=== PATIENT | female | born 1995 | race Caucasian/White ===

== ENCOUNTER 2021-02-22 02:24 | Emergency (ER) | payer OTHER ==
[~2021-02-22] VITALS: Ht 167.7 cm; Wt 79.8 kg
[2021-02-22 02:35] VITALS: BP 138/78
[2021-02-22 02:47] LABS: BILIRUBIN,URINE NEGATIVE (NEGATIVE); CLARITY,URINE CLEAR; COLOR,URINE YELLOW; GLUCOSE, URINE (UA) NEGATIVE (NEGATIVE); KETONES,URINE NEGATIVE (NEGATIVE); LEUKOCYTE ESTERASE ,URINE NEGATIVE (NEGATIVE); NITRITE,URINE NEGATIVE (NEGATIVE); PROTEIN,URINE NEGATIVE (NEGATIVE)
[2021-02-22 02:59] LABS: BACTERIA,URINE TRACE /HPF; WBC,URINE 0-2 /HPF
[2021-02-22 03:03] LABS: BASOPHILS # (AUTO) 0.1 10^3/uL (0.0-0.1); BASOPHILS % (AUTO) 1 % (0-10); EOSINOPHILS # (AUTO) 0.3 10^3/uL (0.0-0.3); EOSINOPHILS % (AUTO) 2 % (0-10); HEMATOCRIT 40 % (35-52); HEMOGLOBIN 12.8 g/dL (11.5-16.0); LYMPHOCYTES # (AUTO) 3.3 10^3/uL (1.0-4.0); LYMPHOCYTES % (AUTO) 26 % (12-44); MEAN CORPUSCULAR HEMOGLOBIN 27 pg (25-34); MEAN CORPUSCULAR HGB CONC 32 g/dL (32-36); MEAN CORPUSCULAR VOLUME 84 fL (80-99); MEAN PLATELET VOLUME 10.7 fL (9.0-12.2); MONOCYTES # (AUTO) 1.2 10^3/uL (0.0-1.0); MONOCYTES % (AUTO) 10 % (0-12); NEUTROPHILS # (AUTO) 7.8 10^3/uL (1.8-7.8); NEUTROPHILS % (AUTO) 61 % (42-75); PLATELET COUNT 374 10^3/uL (130-400); WHITE BLOOD COUNT 12.7 10^3/uL (4.3-11.0)
[2021-02-22] MEDS ORDERED: KETOROLAC 30 MG/ML VIAL IVP STA (03:06)
[2021-02-22 03:10] LABS: ALBUMIN 4.3 GM/DL (3.2-4.5); POTASSIUM 3.5 MMOL/L (3.6-5.0)
[2021-02-22 03:11] LABS: CALCIUM 9.4 MG/DL (8.5-10.1)
[2021-02-22 03:13] LABS: TOTAL PROTEIN 7.8 GM/DL (6.4-8.2)
[2021-02-22 03:14] LABS: BILIRUBIN,TOTAL 0.3 MG/DL (0.1-1.0)
[2021-02-22] MEDS ORDERED: LACTATED RINGERS 1,000 ML IV ONE (03:15)
[2021-02-22] MEDS ORDERED: ONDANSETRON 4 MG/2 ML (SDV) Z0FRAN IVP ONE (03:15)
[2021-02-22 03:16] LABS: CREATININE SERUM 0.7 MG/DL (0.60-1.30)
--- NOTE | 2021-02-22 03:49 | ED Abdominal Pain ---
General Chief Complaint: Abdominal/GI Problems Stated Complaint: SIDE PAIN Nursing Triage Note: Pt arrives via POV from home with c/o left side pain; onset 1.5hrs CONSULTING SENIOR PRACTICE DIRECTOR. Pt reports recent dx of gallstones. Pt denies N/V/D. States she took one [place] tab that she had from [place] teeth removal in July that did not help. Source of Information: Patient History of Present Illness Date Seen by Provider: Feb 22, 2021 Time Seen by Provider: 02:40 Initial Comments PT ARRIVES VIA POV FROM HOME C/O RIGHT UPPER QUADRANT PAIN RADIATING TO RIGHT FLANK--BEGAN ABOUT 1 1/2 HOURS AGO NOTHING WORSENS OR IMPROVES PAIN TOOK HYDROCODONE X 1 AN HOUR AGO--NO RELIEF ( LEFT OVER MEDICATION FROM WISDOM TEETH REMOVAL IN JULY OF THIS YEAR) C/O NAUSEA, NO VOMITING NORMAL BM TODAY NO FEVER NO URINARY SYMPTOMS NO HISTORY OF SIMILAR PT WAS FOUND TO HAVE A GALLSTONE ON ULTRASOUND DONE A COUPLE OF WEEKS AGO AT TRANSFER PT STATES ULTRASOUND WAS DONE FOR ELEVATED LIVER ENZYMES NOTED ON ROUTINE LAB. STATES SHE WAS TOLD SHE HAD A FATTY LIVER. PT HAS NOT HAD PAIN IN ABDOMEN OR NAUSEA/VOMITING OR ANY GI SYMPTOMS BEFORE NOW LAST ATE AROUND 1900 TONIGHT--2 PANCAKES AND 2 EGGS LMP--NOW PCP: DR. NUGENT/FOOD AND BEVERAGE ASSOCIATE SHEILA NUGENT Allergies and Home Medications Allergies Coded Allergies: No Known Drug Allergies (Unverified , 02/22/21) Patient Home Medication List Home Medication List Reviewed: Yes Ondansetron (Ondansetron Odt) 4 Mg Tab.rapdis, 4 MG PO Q4H Prescribed by: CHRISTIANO REDDY on 02/22/21426 Pantoprazole Sodium (Protonix) 40 Mg Tablet.dr, 40 MG PO DAILY Prescribed by: CHRISTIANO REDDY on 02/22/21426 Tramadol HCl (Ultram) 50 Mg Tablet, 50 MG PO Q4H Prescribed by: CHRISTIANO REDDY on 02/22/21426 Review of Systems Review of Systems Constitutional: no symptoms reported Respiratory: No Symptoms Reported Cardiovascular: No Symptoms Reported Gastrointestinal: See HPI, Abdominal Pain; Denies Constipated, Denies Diarrhea; Nausea; Denies Poor Appetite, Denies Poor Fluid Intake, Denies Vomiting Genitourinary: No Symptoms Reported Musculoskeletal: see HPI, back pain Skin: no symptoms reported Psychiatric/Neurological: No Symptoms Reported Endocrine: No Symptoms Reported Hematologic/Lymphatic: No Symptoms Reported Past Njtwygp-Vqjzyz-Dxptyh Hx Patient Social History Tobacco Use?: No Use of E-Cig and/or Vaping dev: No Substance use?: No Alcohol Use?: No Pt feels they are or have been: No Immunizations Up To Date Influenza Vaccine Up-to-Date: No; Not Current Past Medical History Surgeries: Yes (WISDOM TEETH) Respiratory: No Cardiac: No Neurological: No Reproductive Disorders: Yes Female Reproductive Disorders: Polycystic Ovarian Dis Genitourinary: No Gastrointestinal: Yes Gastroesophageal Reflux Musculoskeletal: No Endocrine: No HEENT: No (WISDOM TEETH REMOVED) Cancer: No Psychosocial: No Integumentary: No Blood Disorders: No Physical Exam Vital Signs Vital Signs - First Documented 02/22/21 02:35 Temp 36.8 Pulse 101 Resp 18 B/P (MAP) 138/78 (98) Pulse Ox 100 O2 Delivery Room Air Capillary Refill : Less Than 3 Seconds Height/Weight/BMI Height: '" Weight: lbs. oz. kg; 28.00 BMI Method: General Appearance: WD/WN, no apparent distress, other (SMILING, VERY PLEASANT. SITTING UPRIGHT -STYLE. WALKS UPRIGHT AND MOVES QUICKLY WITHOUT DIFFICULTY. DOES NOT APPEAR TO BE IN ANY DISCOMFORT OR DISTRESS.) HEENT: PERRL/EOMI; No scleral icterus (R), No scleral icterus (L) Neck: normal inspection Respiratory: normal breath sounds, no respiratory distress, no accessory muscle use Cardiovascular: regular rate, rhythm, no murmur Gastrointestinal: normal bowel sounds, soft, no organomegaly, no pulsatile mass; No distended, No guarding, No rebound; tenderness (RUQ AND RIGHT FLANK/CVA TENDERNESS--MILD); No hernia, No mass Extremities: normal inspection Back: no vertebral tenderness, CVA tenderness (R); No decreased range of motion Neurologic/Psychiatric: outdoor adventure leader II-XII nml as tested, no motor/sensory deficits, alert, normal mood/affect, oriented x 3 Skin: normal color, warm/dry; No rash; tattoos/piercings (EXTENSIVE TATTOOS) Progress/Results/Core Measures Results/Orders Lab Results Laboratory Tests Test 02/22/21 02:35 02/22/21 02:50 Range/Units Urine Color YELLOW Urine Clarity CLEAR Urine pH 6.0 5-9 Urine Specific [place] >=1.030 1.016-1.022 Urine Protein NEGATIVE NEGATIVE Urine Glucose (UA) NEGATIVE NEGATIVE Urine Ketones NEGATIVE NEGATIVE Urine Nitrite NEGATIVE NEGATIVE Urine Bilirubin NEGATIVE NEGATIVE Urine Urobilinogen 0.2 < = 1.0 MG/DL Urine Leukocyte Esterase NEGATIVE NEGATIVE Urine RBC (Auto) 1+ H NEGATIVE Urine RBC 2-5 H /HPF Urine WBC 0-2 /HPF Urine Squamous Epithelial Cells 2-5 /HPF Urine Crystals NONE /LPF Urine Bacteria TRACE /HPF Urine Casts NONE /LPF Urine Mucus SMALL H /LPF Urine Culture Indicated NO White Blood Count 12.7 H 4.3-11.0 10^3/uL Red Blood Count 4.71 3.80-5.11 10^6/uL Hemoglobin 12.8 11.5-16.0 g/dL Hematocrit 40 35-52 % Mean Corpuscular Volume 84 80-99 fL Mean Corpuscular Hemoglobin 27 25-34 pg Mean Corpuscular Hemoglobin Concent 32 32-36 g/dL Red Cell Distribution Width 13.9 10.0-14.5 % Platelet Count 374 130-400 10^3/uL Mean Platelet Volume 10.7 9.0-12.2 fL Immature Granulocyte % (Auto) 0 % Neutrophils (%) (Auto) 61 42-75 % Lymphocytes (%) (Auto) 26 12-44 % Monocytes (%) (Auto) 10 0-12 % Eosinophils (%) (Auto) 2 0-10 % Basophils (%) (Auto) 1 0-10 % Neutrophils # (Auto) 7.8 1.8-7.8 10^3/uL Lymphocytes # (Auto) 3.3 1.0-4.0 10^3/uL Monocytes # (Auto) 1.2 H 0.0-1.0 10^3/uL Eosinophils # (Auto) 0.3 0.0-0.3 10^3/uL Basophils # (Auto) 0.1 0.0-0.1 10^3/uL Immature Granulocyte # (Auto) 0.1 0.0-0.1 10^3/uL Sodium Level 141 135-145 MMOL/L Potassium Level 3.5 L 3.6-5.0 MMOL/L Chloride Level 105 98-107 MMOL/L Carbon Dioxide Level 23 21-32 MMOL/L Anion Gap 13 5-14 MMOL/L Blood Urea Nitrogen 9 7-18 MG/DL Creatinine 0.70 0.60-1.30 MG/DL Estimat Glomerular Filtration Rate 103 BUN/Creatinine Ratio 13 Glucose Level 77 70-105 MG/DL Calcium Level 9.4 8.5-10.1 MG/DL Corrected Calcium 9.2 8.5-10.1 MG/DL Total Bilirubin 0.3 0.1-1.0 MG/DL Aspartate Amino Transf (AST/SGOT) 18 5-34 U/L Alanine Aminotransferase (ALT/SGPT) 28 0-55 U/L Alkaline Phosphatase 68 40-136 U/L Total Protein 7.8 6.4-8.2 GM/DL Albumin 4.3 3.2-4.5 GM/DL Amylase Level 39 25-125 U/L Lipase 50 8-78 U/L My Orders Orders - CHRISTIANO REDDY DO Ed Iv/Invasive Line Start (02/22/21 02:41) Urine Bedside (02/22/21 02:41) Amylase (02/22/21 02:41) Cbc With Automated Diff (02/22/21 02:41) Comprehensive Metabolic Panel (02/22/21 02:41) Lipase (02/22/21 02:41) Ua Culture If Indicated (02/22/21 02:41) Ed Iv/Invasive Line Start (02/22/21 02:41) Ketorolac Injection (Toradol Injection) (02/22/21 03:06) Ed Iv/Invasive Line Start (02/22/21 03:06) Lactated Ringers (Lr 1000 Ml Iv Solution (02/22/21 03:15) Ondansetron Injection (Zofran Injectio (02/22/21 03:15) Ct Abd/Pelvis Wo(Kidney Stone) (02/22/21 03:08) Abdomen/Kub 1view (02/22/21 03:08) Medications Given in ED Current Medications Medications Dose Ordered Sig/Yolanda Route Start Time Stop Time Status Last Admin Dose Admin Lactated Ringer's 1,000 ml @ 0 mls/hr Q0M ONCE IV 02/22/21 03:15 02/22/21 03:16 DC 02/22/21 03:13 1,000 MLS/HR Ondansetron HCl 4 mg ONCE ONCE IVP 02/22/21 03:15 02/22/21 03:16 DC 02/22/21 03:13 4 MG Vital Signs/I&O 02/22/21 02:35 Temp 36.8 Pulse 101 Resp 18 B/P (MAP) 138/78 (98) Pulse Ox 100 O2 Delivery Room Air Blood Pressure Mean: 98 Progress Progress Note : Progress Note GIVEN IV FLUIDS, TORADOL AND ZOFRAN WITH COMPLETE RESOLUTION OF SYMPTOMS Diagnostic Imaging Comments ABDOMEN XRAYS--PER RADIOLOGIST REPORT AT 0413 FINDINGS: Nonspecific bowel gas pattern. No suspicious radiopaque densities. No acute osseous findings. IMPRESSION: No acute findings in the abdomen. CT ABDOMEN/PELVIS--PER RADIOLOGIST REPORT AT 0419 FINDINGS: Cholelithiasis. The liver, pancreas, spleen, adrenals, kidneys, collecting systems, bladder and appendix are negative. Reproductive structures grossly unremarkable. No free intraperitoneal air/fluid, lymphadenopathy or evidence of bowel obstruction. No acute osseous findings. IMPRESSION: Cholelithiasis without secondary findings of cholecystitis. This could be further investigated with ultrasound. Agree with preliminary interpretation Reviewed: Reviewed by Me Departure Impression Primary Impression: Cholelithiasis Additional Impression: Biliary colic Disposition: HOME, SELF-CARE Condition: Improved Departure-Patient Inst. Decision time for Depature: 04:19 Referrals: RAMOS LO DO CYNTHIA NUGENT DO Patient Instructions: Gallstones Add. Discharge Instructions: CLEAR LIQUIDS--WATER, BROTH, JELLO, GATORADE NO FOOD UNTIL YOUR PAIN AND NAUSEA ARE GONE THEN ADD BRATS DIET TO CLEAR LIQUIDS--BANANAS, RICE, APPLESAUCE, TOAST, SALTINES FOLLOW UP WITH DR. LO NEXT WEEK FOR FURTHER CARE--CALL Tuesday TO SCHEDULE APPOINTMENT RETURN TO ER IF SYMPTOMS WORSEN All discharge instructions reviewed with patient and/or family. Voiced u nderstanding. Scripts Pantoprazole Sodium (Protonix) 40 Mg Tablet. 40 MG PO DAILY, #15 TAB Prov: CHRISTIANO REDDY DO 02/22/21 Ondansetron (Ondansetron Odt) 4 Mg Tab.rapdis 4 MG PO Q4H for Nausea/Vomiting, #10 TAB Prov: CHRISTIANO REDDY DO 02/22/21 Tramadol HCl (Ultram) 50 Mg Tablet 50 MG PO Q4H for Pain, #20 TAB Prov: CHRISTIANO REDDY DO 02/22/21 CHRISTIANO REDDY DO Feb 22, 2021 03:49
--- NOTE | 2021-02-22 04:11 | Diagnostic Imaging Report ---
EXAM: ABDOMEN/KUB 1VIEW INDICATION: Left flank pain. Abdominal pain. COMPARISON: None FINDINGS: Nonspecific bowel gas pattern. No suspicious radiopaque densities. No acute osseous findings. IMPRESSION: No acute findings in the abdomen. Dictated by: Dictated on workstation # [id number]
--- NOTE | 2021-02-22 04:13 | Diagnostic Imaging Report ---
PROCEDURE: CT urinary tract, rule out kidney stone. TECHNIQUE: Multiple contiguous axial images were obtained through the abdomen and pelvis without the use of intravenous contrast. Auto Exposure Controls were utilized during the CT exam to meet ALARA standards for radiation dose reduction. INDICATION: Flank pain. COMPARISON: Abdominal radiograph from earlier today. FINDINGS: Cholelithiasis. The liver, pancreas, spleen, adrenals, kidneys, collecting systems, bladder and appendix are negative. Reproductive structures grossly unremarkable. No free intraperitoneal air/fluid, lymphadenopathy or evidence of bowel obstruction. No acute osseous findings. IMPRESSION: Cholelithiasis without secondary findings of cholecystitis. This could be further investigated with ultrasound. Agree with preliminary interpretation Dictated by: Dictated on workstation # [id number]
[2021-02-22] MEDS ORDERED: TRAM-42 PO (04:27)
[2021-02-22] MEDS ORDERED: ONDA4TAB11 PO (04:27)
[2021-02-22] MEDS ORDERED: PANT40TA2 PO (04:27)
[2021-02-26] MEDS ORDERED: HYDR-3817 PO (11:40)
== END 2021-02-22 04:40 | disposition home or self-care (01) ==
LOC: ER 02:28
DX: K80.20 Calculus of gallbladder without cholecystitis without obstruction (principal); K80.50 Calculus of bile duct without cholangitis or cholecystitis without obstruction; K21.9 Gastro-esophageal reflux disease without esophagitis
CPT/HCPCS: 36415; 74018; 74176; 80053; 81000; 82150; 83690; 84703; 85025

== ENCOUNTER 2021-02-25 05:37 | Outpatient (CLI) | payer OTHER ==
[~2021-02-25] VITALS: Ht 167.7 cm; Wt 79.0 kg
[~2021-02-25 05:37] MED LIST: ONDA4TAB11 PO; PANT40TA2 PO; TRAM-42 PO
[2021-02-25] MEDS ORDERED: BIRTH CONTROL (09:27)
[2021-02-25] MEDS ORDERED: SPIR25TA PO (09:27)
[2021-02-26] MEDS ORDERED: HYDR-3817 PO (11:40)
== END 2021-02-25 09:38 | disposition home or self-care (01) ==
LOC: PREOP 05:37
PROVIDERS: ATTEND Surgery
DX: Z01.818 Encounter for other preprocedural examination (principal)

== ENCOUNTER 2021-02-26 11:27 | Day surgery (SDC) | payer OTHER ==
[2021-02-26] VITALS (11 sets, daily range): BP systolic 108–131; BP diastolic 61–83
[~2021-02-26] VITALS: Ht 167 cm; Wt 79.0 kg
[~2021-02-26 11:27] MED LIST changes: +BIRTH CONTROL; +SPIR25TA PO
--- NOTE | 2021-02-26 11:38 | Progress Note-Pre Operative ---
Pre-Operative Progress Note H&P Reviewed The H&P was reviewed, patient examined and no changes noted. Date Seen by Provider: Feb 26, 2021 Time Seen by Provider: 11:30 Date H&P Reviewed: Feb 26, 2021 Time H&P Reviewed: :30 Pre-Operative Diagnosis: sx chronic calculous cholecystectomy DWIGHT BLANCHARD MD Feb 26, 2021 11:38
[2021-02-26] MEDS ORDERED: HYDR-3817 PO (11:40)
--- NOTE | 2021-02-26 11:41 | Discharge Inst-Surgical ---
D/C Lap Instructions-SANTO New, Converted, or Re-Newed RX: RX on Chart Follow Up Appt in 2 weeks Activity as tolerated No driving for 24 hours No [address] while on pain medications Incentive Spirometry use every 2 hours while awake Regular Diet Symptoms to Report: Fever over 101 degree F, Nausea/Vomiting Infection Signs and Symptoms to report: Increased redness, Foul odor of wound, Increased drainage Bathing instructions: May shower Operative Area Clean/Dry; Keep incision clean/dry If any problems/questions: Contact your physician or go to Emergency Room DWIGHT BLANCHARD MD Feb 26, 2021 11:41
[2021-02-26] MEDS ORDERED: oxyCODONE/APAP 5/325MG (PERCOCET 5) TABLET PO PRN (11:45)
[2021-02-26] MEDS ORDERED: ONDANSETRON 4 MG/2 ML (SDV) Z0FRAN IVP PRN ×2 (11:45→14:15)
[2021-02-26] MEDS ORDERED: ACETAMINOPHEN 325 MG TABLET PO PRN (11:45)
[2021-02-26] MEDS ORDERED: morphine INJ 10 MG/ML 1ML (SYR OR VIAL) IVP PRN ×2 (11:45)
[2021-02-26] MEDS: LACTATED RINGERS 1,000 ML IV PRN ×2 (12:08→14:01)
[2021-02-26] MEDS ORDERED: ceFAZolin 2 GM IV Premixed 50 ML IV ONE (12:15)
[2021-02-26] MEDS ORDERED: LIDOCAINE/EPI 1%-1:200,000 (XYLOCAINE) 30 ML VIAL ONE (12:20)
[2021-02-26] MEDS ORDERED: ROCURONIUM 10 MG/ML 5 ML SYRINGE IV ONE (12:48)
[2021-02-26] MEDS ORDERED: SEVOFLURANE (ULTANE) 15 ML INHAL SOLN ONE ×2 (12:48→13:36)
[2021-02-26] MEDS ORDERED: ONDANSETRON 4 MG/2 ML (SDV) Z0FRAN ONE (12:48)
[2021-02-26] MEDS ORDERED: proPOfol 200 MG/20 ML (DIPRIVAN) VIAL IV ONE (12:48)
[2021-02-26] MEDS ORDERED: fentaNYL INJ 100 MCG/2 ML AMP ONE (12:48)
[2021-02-26] MEDS ORDERED: LIDOCAINE PF 2% 5 ML (XYLOCAINE) VIAL ONE (12:48)
[2021-02-26] MEDS ORDERED: MIDAZOLAM 2 MG/2 ML (VERSED) VIAL ONE (12:48)
[2021-02-26] MEDS ORDERED: morphine INJ 10 MG/ML 1ML (SYR OR VIAL) ONE (13:38)
[2021-02-26] MEDS ORDERED: GLYCOPYRROLATE 0.2 MG/ML (ROBINUL) 2 ML VIAL ONE (13:52)
[2021-02-26] MEDS ORDERED: NEOSTIGMINE 3 MG/3 ML VIAL ONE (13:52)
--- NOTE | 2021-02-26 14:03 | Anesthesia-General Post-Op ---
General Patient Condition Mental Status/LOC: Same as Preop Cardiovascular: Satisfactory Nausea/Vomiting: Absent Respiratory: Satisfactory Pain: Controlled Complications: Absent Post Op Complications Complications None Follow Up Care/Instructions Patient Instructions None needed. Anesthesia/Patient Condition Patient Condition Patient is doing well, no complaints, stable vital signs, no apparent adverse anesthesia problems. No complications reported per nursing. JARED SCHULTZ CRNA Feb 26, 2021 14:03
[2021-02-26] MEDS ORDERED: morphine INJ 10 MG/ML 1ML (SYR OR VIAL) IVP ONE (14:15)
[2021-02-26] MEDS ORDERED: MEPERIDINE (DEMEROL) INJ 50 MG/ML IVP ONE (14:15)
--- NOTE | 2021-02-26 14:23 | Progress Note-Post Operative ---
Post-Operative Progess Note Surgeon (s)/Grey Roll Man (s) Surgeon DWIGHT BLANCHARD MD Grey Roll Man: montse flores MOSS GATHERER Pre-Operative Diagnosis sx chronic calculous cholecystectomy Post-Operative Diagnosis same Procedure & Operative Findings Date of Procedure 02/26/21 Procedure Performed/Findings laparoscopic cholecystectomy Anesthesia Type get Estimated Blood Loss Estimated blood loss (mL): minimal Specimens/Packing Specimens Removed gallbladder. DWIGHT BLANCHARD MD Feb 26, 2021 14:23
--- NOTE | 2021-02-26 19:57 | OPERATIVE REPORT ---
DATE OF SERVICE: 02/26/2021 ATTENDING PRIMARY CARE PHYSICIAN: Justin Christie DO PREOPERATIVE DIAGNOSIS: Symptomatic chronic calculous cholecystitis. POSTOPERATIVE DIAGNOSIS: Symptomatic chronic calculous cholecystitis. PROCEDURE: Laparoscopic cholecystectomy. SURGEON: Dwight Blanchard MD RETURNS SUPERVISOR: Harpreet Odell APRN ANESTHESIA: General endotracheal. ESTIMATED BLOOD LOSS: Minimal. FINDINGS: Same as postoperative diagnosis. DISPOSITION: The patient tolerated the procedure well. INDICATIONS: The patient is a 25-year-old female who was referred over to us for symptomatic chronic calculous cholecystitis. She states she has had intermittent right upper abdominal quadrant pain with radiation towards the back for the past 6 months. However, in the past month, she has had multiple episodes and they have been much more severe. She did have an ultrasound performed approximately 1 month ago and she was found to have gallstones. DESCRIPTION OF PROCEDURE: The patient was brought to the operating room, laid supine on the table. After adequate IV pain and sedative medications and general endotracheal intubation, the abdomen was prepped and draped in standard surgical fashion. A 0.5% Marcaine with epinephrine was then used to anesthetize the overlying skin in the left upper abdominal quadrant and a transverse skin incision made using a 15 blade. An 0 silk suture was applied to the medial aspect incision for retraction and a Veress needle inserted with a low opening pressure of 0 mmHg. The abdomen was insufflated to 15 mmHg pressure. The Veress needle removed and a 5 mm XL trocar placed followed by a 5 mm 45-degree angle laparoscope visualizing the peritoneal cavity. A 4-quadrant abdominal exploration was performed. There was a distended gallbladder. No gallbladder wall thickening. Under direct visualization, we then proceeded to place a supraumbilical 10 mm port after the skin and peritoneal lining were anesthetized using 0.5% Marcaine with epinephrine and a transverse skin incision made using a 15 blade. In a similar manner, a right upper abdominal quadrant 5 mm port was placed. The patient was then placed in reverse Trendelenburg position as well as plane right side up, left side down. The fundus of the gallbladder was then resected anteriorly and superiorly, and the hepatoduodenal ligament was then opened using blunt dissection and electrocautery with hook instrument as well as [place] dissector. The entire critical view of safety was identified including the triangle of [place], the cystic duct and artery as only two structures going to gallbladder as well as the cystic plate behind the proximal gallbladder. A timeout was then taken and the cystic duct and artery were then clipped proximally and distally and cut with EndoShears. The gallbladder was then dissected off the liver bed using electrocautery with visualization of good hemostasis as well as no leaking ducts of L[place]chka. The gallbladder was removed through the 10 mm port site using an EndoCatch bag. The 10 mm port site fascia and peritoneum were then closed under direct visualization using a Manny-Belkys device and 0 Vicryl suture. The abdomen was desufflated and remaining ports removed. All skin incisions were closed using 4-0 Monocryl running subcuticular sutures. Wounds were then cleaned and covered with Dermabond. The patient tolerated the procedure well. We will start IV normal pain medication as well as a clear liquid diet. Once she is tolerating clears, has good pain control with oral pain medications and ambulating well, we will discharge her home. She will be instructed to do no heavy lifting or exertion for the next two weeks. Job ID: [id number] DocumentID: [id number] Dictated Date: 02/26/2021 13:57:02 Electrical And Radio Aircraft Mechanic Date: 02/26/2021 19:56:34 Dictated By: DWIGHT BLANCHARD MD
== END 2021-02-26 16:05 ==
LOC: SDC 11:27
PROVIDERS: ATTEND Surgery
DX: K80.10 Calculus of gallbladder with chronic cholecystitis without obstruction (principal); Z79.899 Other long term (current) drug therapy; Z80.0 Family history of malignant neoplasm of digestive organs; Z80.41 Family history of malignant neoplasm of ovary; Z80.3 Family history of malignant neoplasm of breast
CPT/HCPCS: 84703; 87081